=== PATIENT | male | born 1965 | race American Indian/Alaskan Native ===

== ENCOUNTER 2017-03-13 16:12 | Inpatient (IN) | payer MEDICAID, OTHER ==
[2017-03-13 16:12] VITALS: BMI 41.5
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
[2017-03-13 18:01] LABS: BASO # 0.1 K/uL (0.0-0.2); BASO % 0.9 % (0.0-2.0); EOS # 0.2 K/uL (0.0-0.7); HEMOGLOBIN 13.2 g/dL (12.0-18.0); LYMPH # 2.4 K/uL (1.0-4.3); LYMPH % 29.5 % (20.0-40.0); MEAN CELL VOLUME 85.5 fl (80.0-94.0); MEAN CORPUSCULAR HEMOGLOBIN 28.2 pg (27.0-31.0); MEAN CORPUSCULAR HGB CONC 32.9 g/dL (33.0-37.0); MEAN PLATELET VOLUME 10.7 fl (7.2-11.7); MONO # 0.7 K/uL (0.0-0.8); MONO % 8.4 % (0.0-10.0); NEUT # 4.7 K/uL (1.8-7.0); NEUT % 58.2 % (50.0-75.0); NRBC % 0.1 % (0.0-0.0); RBC 4.68 Mil/uL (4.40-5.90); RED CELL DISTRIBUTION WIDTH 14.8 % (11.5-14.5); WHITE BLOOD COUNT 8.1 K/uL (4.8-10.8)
[2017-03-13 18:18] LABS: ALB/GLOB RATIO 1.4 (1.0-2.1); ALT/SGPT 43 U/L (21-72); AST/SGOT 30 U/L (17-59); BLOOD UREA NITROGEN 13 mg/dl (9-20); CALCIUM 9.4 mg/dL (8.4-10.2); GFR AFRICAN-AMERICAN > 60; GFR NON-AFRICAN AMERICAN > 60
[2017-03-13 19:13] LABS: BARBITURATES, UR NEGATIVE (NEGATIVE); BENZODIAZEPINES, UR NEGATIVE (NEGATIVE); OPIATES, UR NEGATIVE (NEGATIVE); PHENCYCLIDINE, UR NEGATIVE (NEGATIVE)
[2017-03-13] MEDS ORDERED: Magnesium Hydroxide Susp 30 ml UD PO PRN (22:57)
[2017-03-13] MEDS ORDERED: DiphenhydrAMINE 50 mg/ml Inj IM PRN (22:57)
[2017-03-13] MEDS ORDERED: Alum-Mag Hydrox-Simethicone Susp (30 mL) PO PRN (22:57)
--- NOTE | 2017-03-13 23:20 | PCM.BM ---
<Martha Greene P - Last Filed: 03/13/17 23:18> Treatment Plan Problems - Problems identified on initial assessmt Auditory hallucinations Date Initiated: 03/13/17 Time Initiated: 23:18 Assessment reference: NA Status: Active Medication nonadherence Date Initiated: 03/13/17 Time Initiated: 23:19 Assessment reference: NA Status: Active Treatment assets and liabiliti Patient Assests: cooperative, negotiates basic needs, cognitively intact Patient Liabilities: live alone, financial problems, poor support system, medical problems - Milieu Protocol Maintain good personal hygiene: daily Encourage regular showers, daily Remind patient to perform daily oral care Conduct patient checks and document Observation sheet: Q15 minutes Maintain personal safety: every shift Educate patient to report safety concerns to staff, every shift Monitor environment for contraband/sharps Medication safety: Monitor for expected outcome, potential side effects: every shift, Assess barriers to learning: every shift, Assess readiness for medication education: every shift <Trey Gray - Last Filed: 03/17/17 13:43> - Diagnosis (1) Schizoaffective disorder Status: Acute Interventions: 03/17/17 13:43 psychotherapy pharmacotherapy <Hollis Robles - Last Filed: 03/17/17 14:15> Family Contact Family involvement: Famliy/SO not involved Family contact: Patient declines to allow family contact at present Family contact name: Pt denied. - Goals for Treatment Patient goals for treatment: Pt is mainly focused on housing and will be referred to [facility] upon discharge. Discharge/Continuing Care - Education Needs Education Needs: Patient Medication, Patient Coping Skills, Patient Aftercare Safety Plan - Discharge Discharge Criteria: Tolerates medication w/o severe side effects, Free of Suicidal thoughts, Free of paranoid thoughts, Free of agitation, Normal sleep pattern, Reduction of target symptoms Discharge to:: [facility] - Treatment Team Participation Discussed with Family/SO: No Was Patient/Family/SO present at Treatment Team Meeting: Yes
[2017-03-14 06:49] VITALS: O2SAT 100
--- NOTE | 2017-03-14 08:17 | CARD ---
APPROVED REPORT EKG Measurement Heart [id number] <Conclusion> Normal sinus rhythm Possible Left atrial enlargement Left ventricular hypertrophy T wave abnormality, consider lateral ischemia Abnormal ECG
[2017-03-14 08:43] LABS: T4 7.28 ug/dl (5.5-11.0)
[2017-03-14] MEDS: Insulin Regular 100 units/ml SC SCH ×4 (09:02→21:19)
--- NOTE | 2017-03-14 11:13 | RAD ---
HISTORY: medical clearance COMPARISON: No prior. TECHNIQUE: Chest PA and lateral FINDINGS: LUNGS: No active pulmonary disease. PLEURA: No significant pleural effusion identified. No pneumothorax apparent. CARDIOVASCULAR: Normal. OSSEOUS STRUCTURES: Spinal degenerative changes. VISUALIZED UPPER ABDOMEN: Right upper quadrant surgical clips. OTHER FINDINGS: None. IMPRESSION: No active disease.
--- NOTE | 2017-03-14 13:29 | PCM.PSYCH ---
Initial Psychiatric Evaluation - Initial Psychiatric Evaluation Type of Admission: Voluntary Legal Status: Capacity Chief Complaint (in patient's own words): I heard voices telling me to hurt myself Patient's Reaction to Hospitalization: pt requested help History of Present Illness and Precipitating Events: pt with previous hx of schizophrenia paranoid type currently non compliant with medications or follow up, started decompensating and experiencing auditory hallucinations, pt also became increasingly depressed due to conflict with family started having command hallucinations to hjump off the bridge , came to ER seeking help pt denied suicidal plan on the unit, denied homicidal ideations, , depressed, isolative and anhedonic, denied any current substance use Current Medications: Active Medications Generic Name Dose Route Start Last Admin Trade Name Freq PRN Reason Stop Dose Admin Acetaminophen 650 mg 03/13/17 22:57 Tylenol 325mg Tab PO Q4 PRN pain level 4-7 Al Hydrox/Mg Hydrox/Simethicone 30 ml 03/13/17 22:57 Maalox Plus 30 Ml PO Q4 PRN Dyspepsia Aspirin 81 mg 03/14/17 09:00 03/14/17 09:01 Aspirin Chewable PO 81 mg DAILY DEQUAN Administration Atorvastatin Calcium 10 mg 03/14/17 22:00 Lipitor PO HS DEQUAN Diphenhydramine HCl 50 mg 03/13/17 22:57 Benadryl IM Q6 PRN Extrapyramidal S/S Unable PO Diphenhydramine HCl 50 mg 03/13/17 22:57 Benadryl PO Q6 PRN Extrapyramidal Symptoms Diphenhydramine HCl 50 mg 03/13/17 22:59 Benadryl PO HS PRN Sleep Enalapril Maleate 5 mg 03/14/17 09:00 03/14/17 09:02 Vasotec PO 5 mg DAILY DEQUAN Administration Gabapentin 400 mg 03/14/17 09:00 03/14/17 09:02 Neurontin PO 400 mg TID DEQUAN Administration Insulin Human Regular 0 units 03/14/17 07:30 03/14/17 12:57 Humulin R SC Not Given ACHS DEQUAN Protocol Lorazepam 2 mg 03/13/17 22:57 Ativan IM Q4 PRN Anxiety/Agitation,Unable PO Lorazepam 2 mg 03/13/17 22:57 Ativan PO Q4 PRN Anxiety/Agitation Magnesium Hydroxide 30 ml 03/13/17 22:57 Milk Of Magnesia PO HS PRN Constipation Phenytoin Sodium 200 mg 03/14/17 09:00 03/14/17 09:01 Dilantin PO 200 mg BID DEQUAN Administration Risperidone 1 mg 03/14/17 17:00 Risperdal M-Tab PO BID DEQUAN Past Psychiatric History - Past Psychiatric History Explanation of prior treatment: multiple inpatient hospitalizations, last in [facility] two years ago hx of non compliance with medications History of ETOH/Drug Use: denied History of Family Illness: denied Pertinent Medical Hx (Current Medical&Sleep Prob, Allergies): Allergies Allergy/AdvReac Type Severity Reaction Status Date / Time haloperidol [From Haldol] Allergy Verified 03/01/16 20:40 haloperidol lactate Allergy Verified 03/01/16 20:40 [From Haldol] Aspirin [Aspirin Chewable] 81 mg PO DAILY #30 chew 02/09/15 Benztropine [Cogentin] 1 mg PO BID #60 tab 02/09/15 Enalapril Maleate [Vasotec] 5 mg PO DAILY #30 tab 02/09/15 Gabapentin [Neurontin] 400 mg PO TID #90 cap 02/09/15 Phenytoin, Extended [Dilantin] 200 mg PO BID #120 cer 02/09/15 Rosuvastatin Calcium [Crestor] 5 mg PO HS #30 tab 02/09/15 QUEtiapine [SEROquel] 200 mg PO BID 03/13/17 buPROPion SR [Wellbutrin] 100 mg PO BID 03/13/17 Mental Status Examination - Personal Presentation Personal Presentation: Looks stated age - Affect Affect: Constricted, Depressed - Motor Activity Motor Activity: Psychomotor Retardation - Reliability in Providing Information Reliability in Providing Information: Poor, due to alteration in thoughts - Mood Mood: Depressed - Formal Thought Process Formal Thought Process: Hallucinations, Circumstantial - Hallucinations/Delusions Hallucinations: Auditory - Obsessions/Compulsions Obsessions: No - Cognitive Functions Orientation: Person, Place Sensorium: Alert Attention/Concentration: Easily distracted Abstract Thinking: [place] Estimate of Intelligence: Below average Judgement: Imparied, as evidence by: Lack of insight into illness Memory: Recent intact, as evidence by: Ability to recall events of the day - Risk Risk: Diminished functioning - Strength & Assets Inventory Strength & Assets Inventory: Life experience - Limitations Additional comments: poor compliance DSM 5 DX - DSM 5 DSM 5 Diagnosis: schizophrenia paranoid type - Recommended/Plan of Treatment Treatment Recommendations and Plan of Treatment: start risperidone 1mg bid and lexapro 5mg group and supportive therapy
--- NOTE | 2017-03-14 16:07 | CP.PCM.CON ---
<Chuyita Rodriguez - Last Filed: 03/14/17 16:33> History of Present Illness - History of Present Illness History of Present Illness: 51 y/o male patient with PMHx of Diabetes, HTN, Hypercholesterolemia, Schizophrenia, Seizures seen and evaluated at bedside in psych. Patient states that he came to the hospital for suicidal ideation that has been happening for a while. Patient states that he hears voices at times. Patient states that he was told he has Syphilis by another doctor. Patient states that he has little pain on his penis because of the sores. Patient denies of any recent F/N/V/C/SOB /CP/diarrhea/headache. Denies of any other complains at this time. PMHx: Diabetes, HTN, Hypercholesterolemia, Schizophrenia, Seizures PSHx: denies Allergies: Haloperidol SHx: denies smoking, EtOH or illicit drug usage FHx: Denies Review of Systems - Constitutional Constitutional: As Per HPI Past Patient History - Infectious Disease Hx of Infectious Diseases: None - Past Medical History & Family History Past Medical History?: Yes - Past Social History Alcohol: Social Drugs: Prescription medications - CARDIAC Hx Cardiac Disorders: No Hx Hypertension: Yes - PULMONARY Hx Respiratory Disorders: No Hx Tuberculosis: No - NEUROLOGICAL HX Cerebrovascular Accident: No Hx Seizures: Yes - HEENT Hx HEENT Problems: No - RENAL Hx Chronic Kidney Disease: No - ENDOCRINE/METABOLIC Hx Endocrine Disorders: Yes Hx Diabetes Mellitus Type 2: Yes - HEMATOLOGICAL/ONCOLOGICAL Hx Blood Disorders: No Hx Cancer: No Hx Human Immunodeficiency Virus (HIV): No - INTEGUMENTARY Hx Dermatological Problems: No - MUSCULOSKELETAL/RHEUMATOLOGICAL Hx Musculoskeletal Disorders: Yes Hx Back Pain: Yes Hx Falls: No - GASTROINTESTINAL Hx Gastrointestinal Disorders: Yes Other/Comment: Liver Cirrhosis - GENITOURINARY/GYNECOLOGICAL Hx Sexually Transmitted Disorders: No - PSYCHIATRIC Hx Substance Use: No - SURGICAL HISTORY Hx Cholecystectomy: Yes Hx Coronary Artery Bypass Graft: Yes Hx Coronary Stent: Yes (2009) - ANESTHESIA Hx Anesthesia: Yes Hx Anesthesia Reactions: No Meds Allergies/Adverse Reactions: Allergies Allergy/AdvReac Type Severity Reaction Status Date / Time haloperidol [From Haldol] Allergy Verified 03/01/16 20:40 haloperidol lactate Allergy Verified 03/01/16 20:40 [From Haldol] - Medications Medications: Current Medications Acetaminophen (Tylenol 325mg Tab) 650 mg PO Q4 PRN PRN Reason: pain level 4-7 Al Hydrox/Mg Hydrox/Simethicone (Maalox Plus 30 Ml) 30 ml PO Q4 PRN PRN Reason: Dyspepsia Aspirin (Aspirin Chewable) 81 mg PO DAILY [facility] Last Admin: 03/14/17 09:01 Dose: 81 mg Atorvastatin Calcium (Lipitor) 10 mg PO HS [facility] Diphenhydramine HCl (Benadryl) 50 mg IM Q6 PRN PRN Reason: Extrapyramidal S/S Unable PO Diphenhydramine HCl (Benadryl) 50 mg PO Q6 PRN PRN Reason: Extrapyramidal Symptoms Diphenhydramine HCl (Benadryl) 50 mg PO HS PRN PRN Reason: Sleep Enalapril Maleate (Vasotec) 5 mg PO DAILY [facility] Last Admin: 03/14/17 09:02 Dose: 5 mg Escitalopram Oxalate (Lexapro) 5 mg PO DAILY [facility] Gabapentin (Neurontin) 400 mg PO TID [facility] Last Admin: 03/14/17 09:02 Dose: 400 mg Insulin Human Regular (Humulin R) 0 units SC [facility] PRN Reason: Protocol Last Admin: 03/14/17 12:57 Dose: Not Given Lorazepam (Ativan) 2 mg IM Q4 PRN PRN Reason: Anxiety/Agitation,Unable PO Lorazepam (Ativan) 2 mg PO Q4 PRN PRN Reason: Anxiety/Agitation Magnesium Hydroxide (Milk Of Magnesia) 30 ml PO HS PRN PRN Reason: Constipation Phenytoin Sodium (Dilantin) 200 mg PO BID [facility] Last Admin: 03/14/17 09:01 Dose: 200 mg Risperidone (Risperdal M-Tab) 1 mg PO BID [facility] Physical Exam - Constitutional Appears: Well, Non-toxic, No Acute Distress - Head Exam Head Exam: ATRAUMATIC - Eye Exam Eye Exam: Normal appearance - ENT Exam ENT Exam: Normal Exam - Neck Exam Neck exam: Positive for: Full Rom, Normal Inspection - Respiratory Exam Respiratory Exam: Clear to Auscultation Bilateral, NORMAL BREATHING PATTERN - Cardiovascular Exam Cardiovascular Exam: REGULAR RHYTHM, +S1, +S2 - GI/Abdominal Exam GI & Abdominal Exam: Normal Bowel Sounds, Soft - Rectal Exam Rectal Exam: Deferred - Extremities Exam Extremities exam: Positive for: full ROM, normal capillary refill, normal inspection. Negative for: calf tenderness, joint swelling, pedal edema - Back Exam Back exam: FULL ROM, NORMAL INSPECTION. absent: vertebral tenderness - Neurological Exam Neurological exam: Alert, Normal Gait, Oriented x3 - Psychiatric Exam Psychiatric exam: Normal Affect, Normal Mood - Skin Skin Exam: Intact, Normal Color, Warm Results - Vital Signs Recent Vital Signs: Last Vital Signs Temp 97.0 F L 03/14/17 10:00 Pulse 65 03/14/17 10:00 Resp 18 03/14/17 10:00 BP 150/94 H 03/14/17 10:00 Pulse Ox 100 03/13/17 23:00 - Labs Result Diagrams: 03/13/17 17:58 03/13/17 17:58 Labs: Laboratory Results - last 24 hr 03/13/17 03/13/17 03/13/17 17:58 17:58 17:58 WBC 8.1 RBC 4.68 Hgb 13.2 Hct 40.0 MCV 85.5 MCH 28.2 MCHC 32.9 L RDW 14.8 H Plt Count 119 L MPV 10.7 Neut % (Auto) 58.2 Lymph % (Auto) 29.5 Martin % (Auto) 8.4 Eos % (Auto) 3.0 Baso % (Auto) 0.9 Neut # 4.7 Lymph # 2.4 Martin # 0.7 Eos # 0.2 Baso # 0.1 Sodium 141 Potassium 4.0 Chloride 103 Carbon Dioxide 27 Anion Gap 15 BUN 13 Creatinine 1.1 Est GFR ( Amer) > 60 Est GFR (Non-Af Amer) > 60 POC Glucose (mg/dL) Random Glucose 143 H Hemoglobin A1c Calcium 9.4 Total Bilirubin 0.4 AST 30 ALT 43 Alkaline Phosphatase 70 Total Protein 6.9 Albumin 4.0 Globulin 2.9 Albumin/Globulin Ratio 1.4 Triglycerides Cholesterol LDL Cholesterol Direct HDL Cholesterol Thyroxine (T4) Urine Opiates Screen Urine Methadone Screen Ur Barbiturates Screen Phenytoin < 3.0 L Ur Phencyclidine Scrn Ur Amphetamines Screen U Benzodiazepines Scrn U Oth Cocaine Metabols U Cannabinoids Screen Alcohol, Quantitative < 10 03/13/17 03/14/17 03/14/17 18:37 06:44 07:48 WBC RBC Hgb Hct MCV MCH MCHC RDW Plt Count MPV Neut % (Auto) Lymph % (Auto) Martin % (Auto) Eos % (Auto) Baso % (Auto) Neut # Lymph # Martin # Eos # Baso # Sodium Potassium Chloride Carbon Dioxide Anion Gap BUN Creatinine Est GFR ( Amer) Est GFR (Non-Af Amer) POC Glucose (mg/dL) 100 Random Glucose Hemoglobin A1c Calcium Total Bilirubin AST ALT Alkaline Phosphatase Total Protein Albumin Globulin Albumin/Globulin Ratio Triglycerides 96 Cholesterol 199 LDL Cholesterol Direct 94 HDL Cholesterol 66 Thyroxine (T4) 7.28 Urine Opiates Screen Negative Urine Methadone Screen Negative Ur Barbiturates Screen Negative Phenytoin Ur Phencyclidine Scrn Negative Ur Amphetamines Screen Negative U Benzodiazepines Scrn Negative U Oth Cocaine Metabols Negative U Cannabinoids Screen Negative Alcohol, Quantitative 03/14/17 03/14/17 03/14/17 07:48 07:48 11:57 WBC RBC Hgb Hct MCV MCH MCHC RDW Plt Count MPV Neut % (Auto) Lymph % (Auto) Martin % (Auto) Eos % (Auto) Baso % (Auto) Neut # Lymph # Martin # Eos # Baso # Sodium Potassium Chloride Carbon Dioxide Anion Gap BUN Creatinine Est GFR ( Amer) Est GFR (Non-Af Amer) POC Glucose (mg/dL) 91 Random Glucose Hemoglobin A1c 6.3 Calcium Total Bilirubin AST ALT Alkaline Phosphatase Total Protein Albumin Globulin Albumin/Globulin Ratio Triglycerides Cholesterol LDL Cholesterol Direct HDL Cholesterol Thyroxine (T4) Urine Opiates Screen Urine Methadone Screen Ur Barbiturates Screen Phenytoin < 3.0 L Ur Phencyclidine Scrn Ur Amphetamines Screen U Benzodiazepines Scrn U Oth Cocaine Metabols U Cannabinoids Screen Alcohol, Quantitative Assessment & Plan - Assessment and Plan (Free Text) Assessment: 51 y/o male patient with PMHx of Diabetes, HTN, Hypercholesterolemia, Schizophrenia, Seizures seen and evaluated in psych. Plan: Hypercholesterolemia - Atorvastatin 10 mg HTN - Enalapril 5 mg DM - Insulin Possible Syphilis - RPR ordered Psychosis - management as per psych - Date & Time Date: 03/14/17 Time: 16:13 <Aurora Chaney - Last Filed: 03/14/17 16:37> Meds - Medications Medications: Current Medications Acetaminophen (Tylenol 325mg Tab) 650 mg PO Q4 PRN PRN Reason: pain level 4-7 Al Hydrox/Mg Hydrox/Simethicone (Maalox Plus 30 Ml) 30 ml PO Q4 PRN PRN Reason: Dyspepsia Aspirin (Aspirin Chewable) 81 mg PO DAILY [facility] Last Admin: 03/14/17 09:01 Dose: 81 mg Atorvastatin Calcium (Lipitor) 10 mg PO HS [facility] Diphenhydramine HCl (Benadryl) 50 mg IM Q6 PRN PRN Reason: Extrapyramidal S/S Unable PO Diphenhydramine HCl (Benadryl) 50 mg PO Q6 PRN PRN Reason: Extrapyramidal Symptoms Diphenhydramine HCl (Benadryl) 50 mg PO HS PRN PRN Reason: Sleep Enalapril Maleate (Vasotec) 5 mg PO DAILY [facility] Last Admin: 03/14/17 09:02 Dose: 5 mg Escitalopram Oxalate (Lexapro) 5 mg PO DAILY [facility] Gabapentin (Neurontin) 400 mg PO TID [facility] Last Admin: 03/14/17 09:02 Dose: 400 mg Insulin Human Regular (Humulin R) 0 units SC [facility] PRN Reason: Protocol Last Admin: 03/14/17 12:57 Dose: Not Given Lorazepam (Ativan) 2 mg IM Q4 PRN PRN Reason: Anxiety/Agitation,Unable PO Lorazepam (Ativan) 2 mg PO Q4 PRN PRN Reason: Anxiety/Agitation Magnesium Hydroxide (Milk Of Magnesia) 30 ml PO HS PRN PRN Reason: Constipation Phenytoin Sodium (Dilantin) 200 mg PO BID [facility] Last Admin: 03/14/17 09:01 Dose: 200 mg Risperidone (Risperdal M-Tab) 1 mg PO BID [facility] Results - Vital Signs Recent Vital Signs: Last Vital Signs Temp 97.0 F L 03/14/17 10:00 Pulse 65 03/14/17 10:00 Resp 18 03/14/17 10:00 BP 150/94 H 03/14/17 10:00 Pulse Ox 100 03/13/17 23:00 - Labs Result Diagrams: 03/13/17 17:58 03/13/17 17:58 Labs: Laboratory Results - last 24 hr 03/13/17 03/13/17 03/13/17 17:58 17:58 17:58 WBC 8.1 RBC 4.68 Hgb 13.2 Hct 40.0 MCV 85.5 MCH 28.2 MCHC 32.9 L RDW 14.8 H Plt Count 119 L MPV 10.7 Neut % (Auto) 58.2 Lymph % (Auto) 29.5 Martin % (Auto) 8.4 Eos % (Auto) 3.0 Baso % (Auto) 0.9 Neut # 4.7 Lymph # 2.4 Martin # 0.7 Eos # 0.2 Baso # 0.1 Sodium 141 Potassium 4.0 Chloride 103 Carbon Dioxide 27 Anion Gap 15 BUN 13 Creatinine 1.1 Est GFR ( Amer) > 60 Est GFR (Non-Af Amer) > 60 POC Glucose (mg/dL) Random Glucose 143 H Hemoglobin A1c Calcium 9.4 Total Bilirubin 0.4 AST 30 ALT 43 Alkaline Phosphatase 70 Total Protein 6.9 Albumin 4.0 Globulin 2.9 Albumin/Globulin Ratio 1.4 Triglycerides Cholesterol LDL Cholesterol Direct HDL Cholesterol Thyroxine (T4) Urine Opiates Screen Urine Methadone Screen Ur Barbiturates Screen Phenytoin < 3.0 L Ur Phencyclidine Scrn Ur Amphetamines Screen U Benzodiazepines Scrn U Oth Cocaine Metabols U Cannabinoids Screen Alcohol, Quantitative < 10 03/13/17 03/14/17 03/14/17 18:37 06:44 07:48 WBC RBC Hgb Hct MCV MCH MCHC RDW Plt Count MPV Neut % (Auto) Lymph % (Auto) Martin % (Auto) Eos % (Auto) Baso % (Auto) Neut # Lymph # Martin # Eos # Baso # Sodium Potassium Chloride Carbon Dioxide Anion Gap BUN Creatinine Est GFR ( Amer) Est GFR (Non-Af Amer) POC Glucose (mg/dL) 100 Random Glucose Hemoglobin A1c Calcium Total Bilirubin AST ALT Alkaline Phosphatase Total Protein Albumin Globulin Albumin/Globulin Ratio Triglycerides 96 Cholesterol 199 LDL Cholesterol Direct 94 HDL Cholesterol 66 Thyroxine (T4) 7.28 Urine Opiates Screen Negative Urine Methadone Screen Negative Ur Barbiturates Screen Negative Phenytoin Ur Phencyclidine Scrn Negative Ur Amphetamines Screen Negative U Benzodiazepines Scrn Negative U Oth Cocaine Metabols Negative U Cannabinoids Screen Negative Alcohol, Quantitative 03/14/17 03/14/17 03/14/17 07:48 07:48 11:57 WBC RBC Hgb Hct MCV MCH MCHC RDW Plt Count MPV Neut % (Auto) Lymph % (Auto) Martin % (Auto) Eos % (Auto) Baso % (Auto) Neut # Lymph # Martin # Eos # Baso # Sodium Potassium Chloride Carbon Dioxide Anion Gap BUN Creatinine Est GFR ( Amer) Est GFR (Non-Af Amer) POC Glucose (mg/dL) 91 Random Glucose Hemoglobin A1c 6.3 Calcium Total Bilirubin AST ALT Alkaline Phosphatase Total Protein Albumin Globulin Albumin/Globulin Ratio Triglycerides Cholesterol LDL Cholesterol Direct HDL Cholesterol Thyroxine (T4) Urine Opiates Screen Urine Methadone Screen Ur Barbiturates Screen Phenytoin < 3.0 L Ur Phencyclidine Scrn Ur Amphetamines Screen U Benzodiazepines Scrn U Oth Cocaine Metabols U Cannabinoids Screen Alcohol, Quantitative Attending/Attestation - Attestation I have personally seen and examined this patient.: Yes I have fully participated in the care of the patient.: Yes I have reviewed all pertinent clinical information: Yes Notes (Text): 03/14/17 16:37 seen examined discussed with resident Dr. Chuyita Rodriguez. Agree with findings and plan as above.
[2017-03-14] MEDS: Risperidone M tab 1 MG PO SCH (17:30)
[2017-03-15] MEDS: Risperidone M tab 1 MG PO SCH (08:50)
[2017-03-15] MEDS: Insulin Regular 100 units/ml SC SCH ×4 (08:51→21:10)
[2017-03-15] MEDS ORDERED: Risperidone M tab 1 MG PO STA (13:11)
--- NOTE | 2017-03-15 14:08 | PCM.PYCHPN ---
Psychiatric Progress Note - Psychiatric Progress Note Patient seen today, length of contact: pt evaluated discussed with team chart reviewed Patient Chief Complaint: I am still hearing voices and they make me angry Problems Identified/Issues Discussed: pt seen in bed continues to be isolative reported feeling anxious and irritable because of the auditory hallucinations, pt stated they are non command but makes him anxious continues to feel depressed due to his current living situation encouraged pt to attend groups and participate in treatment, discussed increasin risperidone gradually no reported side effects of medications pt denied suicidal or homicidal ideations Medical Problems: multiple inpatient hospitalizations, last in [facility] two years ago hx of non compliance with medications DSM 5 Symptoms Update: schizophrenia paranoid type Medication Change: Yes (increase risperidone) Medical Record Reviewed: Yes Mental Status Examination - Cognitive Function Orientation: Person, Place Attention: WNL Concentration: Poor Association: WNL Fund of Knowledge: Poor Decription of patient's judgement and insights: partial insight and poor judgment - Mood Mood: Depressed - Affect Affect: Constricted, Depressed - Speech Speech: Soft - Formal Thought Process Formal Thought Process: Hallucinations, Circumstantial Psychotic Thoughts and Behaviors: pt reported non command auditory hallucinations - Suicidal Ideation Suicidal Ideation: No - Homicidal Ideation Homicidal Ideation: No Goal/Treatment Plan - Goal/Treatment Plan Need for Continued Stay: Severe depression anxiety, Discharge may exacerbated symptoms Progress Toward Problem(s) and Goals/Treatment Plan: sincrease risperidone to 2mg bid , continue with lexapro 5mg group and supportive therapy Estimated Date of D/C: 03/20/17
[2017-03-15] MEDS ORDERED: Risperidone M TAB 2 MG PO SCH (22:00)
[2017-03-16] MEDS ORDERED: Risperidone M TAB 2 MG PO SCH (09:00)
[2017-03-16] MEDS: Insulin Regular 100 units/ml SC SCH ×3 (09:13→17:11)
--- NOTE | 2017-03-16 12:08 | PCM.PYCHPN ---
Psychiatric Progress Note - Psychiatric Progress Note Patient seen today, length of contact: pt evaluated discussed with team chart reviewed Patient Chief Complaint: I had a reaction with the risperidone , I felt too anxious Problems Identified/Issues Discussed: pt seen the day room, reported that with increasing the dose of the risperidone he started to experience swelling of his tongue, and feeling too anxious, discussed with pt the option of another antipsychotic, however her reported a poor response to other options discussed decreasing the dose of risperidone and starting cogentin pt seen more visibale on the unit , attending some groups with a lot of encouragement reported feeling less irritable and depressed and clearing off of the auditory hallucinations denied any current suicidalor homicidal ideations Medical Problems: multiple inpatient hospitalizations, last in [facility] two years ago hx of non compliance with medications DSM 5 Symptoms Update: schizoaffective disorder Medication Change: Yes (decrease risperidone and start cogentin) Medical Record Reviewed: Yes Mental Status Examination - Cognitive Function Orientation: Person, Place Attention: WNL Concentration: Poor Association: WNL Fund of Knowledge: Poor Decription of patient's judgement and insights: partial insight and poor judgment - Mood Mood: Depressed, Anxious - Affect Affect: Constricted, Depressed - Speech Speech: Appropriate, Soft - Formal Thought Process Formal Thought Process: Hallucinations, Circumstantial Psychotic Thoughts and Behaviors: pt reported partial clearing off of the non command auditory hallucinations - Suicidal Ideation Suicidal Ideation: No - Homicidal Ideation Homicidal Ideation: No Goal/Treatment Plan - Goal/Treatment Plan Need for Continued Stay: Severe depression anxiety, Discharge may exacerbated symptoms Progress Toward Problem(s) and Goals/Treatment Plan: decrease risperidone to 1mg bid , increase lexapro to 10 mg, start cogentin 0.5mg bid follow up on psychopharmacological and side effect profile group and supportive therapy Estimated Date of D/C: 03/20/17
[2017-03-17 09:59] VITALS: BP 146/111; PULSE 66; RESP 16; TEMP 97.3
--- NOTE | 2017-03-17 13:47 | PCM.PYCHDC ---
Mental Status Examination - Mental Status Examination Orientation: Person, Place, Situation Memory: Intact Mood: Neutral Affect: Broad Speech: Appropriate Attention: WNL Concentration: WNL Association: WNL Fund of Knowledge: WNL Formal Thought Process: No Impairment Description of patient's judgement and insight: partial insight and poor judgment Psychotic Thoughts and Behaviors: pt denied any current psychotic symptoms non elicited Suicidal Ideation: No Current Homicidal Ideation?: No Discharge Summary - Discharge Note Reason for Hospitalization: pt presented to [facility] in [place] for anxiety, and feeling like something was growing in side of him. reportedly had been seen in same er several times in same week. previously treated for same. reports feeling as though sometime was growing inside of him. reports has been feeling this way for long time. pt was transferred [facility] for psych bed. previously treated for "schizophrenia ". Laboratory Data: Abnormal Lab Results 03/16/17 17:08 POC Glucose (mg/dL) 102 Consultations:: List each consultation separately and include: 1. Reason for request. 2. Findings. 3. Follow-up Summary of Hospital Course include:: 1. Description of specific treatment plan utilized for patients during their course of treatmen. 2. Summarize the time- course for resolution of acute symptoms and/or regressed behaviors. 3. Describe issues identified and worked on during hospitalization. 4. Describe medication utilized. 5. Describe medical problems identified and treated. 6. Reassessment of suicide risk Summary of Hospital Course: pt was started on risperidone 1mg bid GRoupand supportive therapy provided pt reported clearing off of the auditory hallucinations on discharge mental status was stable, at current mental status pt denied suicidal or homicidal ideations denied perceptual disturbances pt at current mental status not danger to self or others - Diagnosis (1) Schizoaffective disorder Status: Acute - Final Diagnosis (DSM 5) Condition upon Discharge: FAIR DSM 5: schizoaffective disorder Disposition: HOME/ ROUTINE Follow-up Treatment Plan: decrease risperidone to 1mg bid , increase lexapro to 10 mg, start cogentin 0.5mg bid follow up on psychopharmacological and side effect profile group and supportive therapy Prescriptions/Medication Reconciliation: Atorvastatin [Lipitor] 10 mg PO HS 30 Days #30 tab Benztropine [Cogentin] 0.5 mg PO BID 30 Days #60 tab Gabapentin [Neurontin] 400 mg PO TID 30 Days #90 cap metFORMIN [glucOPHAGE] 500 mg PO BIDWM 30 Days #30 tab Phenytoin, Extended [Dilantin] 200 mg PO BID 15 Days #30 cer risperiDONE [RisperDAL Tab] 1 mg PO BID 30 Days #60 tab - Antipsychotic Medications Pt discharged on 2 or more routine antipsychotic medications: No
== END 2017-03-17 12:50 | disposition home or self-care (01) | DRG 430 ==
LOC: H.ER 16:12 → H.ERHOLD 18:35 → H.PSYCH 22:54
PROVIDERS: ADMIT Psychiatry & Neurology Psychiatry; ATTEND Psychiatry & Neurology Psychiatry
PROC: GZHZZZZ Group Psychotherapy (ICD-10-PCS; principal; 2017-03-13)
PROC: GZ56ZZZ Individual Psychotherapy, Supportive (ICD-10-PCS; 2017-03-13)
DX: F25.9 Schizoaffective disorder, unspecified (principal); E11.9 Type 2 diabetes mellitus without complications; R45.851 Suicidal ideations; I10 Essential (primary) hypertension; Z95.5 Presence of coronary angioplasty implant and graft; I25.10 Atherosclerotic heart disease of native coronary artery without angina pectoris; E78.00 Pure hypercholesterolemia, unspecified; Z87.891 Personal history of nicotine dependence; Z91.14 Patient's other noncompliance with medication regimen; Z91.19 Patient's noncompliance with other medical treatment and regimen